=== PATIENT | female | born 1965 | race Caucasian/White ===

== ENCOUNTER 2018-03-17 12:30 | Emergency (ER) | payer OTHER, MEDICAID ==
[2018-03-17] MEDS: IBUPROFEN 600 MG TAB PO (14:23)
== END 2018-03-17 14:45 | disposition home or self-care (01) ==
LOC: FTE 12:30
DX: S40.011A Contusion of right shoulder, initial encounter (principal); W01.0XXA Fall on same level from slipping, tripping and stumbling without subsequent striking against object, initial encounter; Y92.9 Unspecified place or not applicable
CPT/HCPCS: 29105; 73030-RT; 99283-25

== ENCOUNTER 2018-08-08 14:23 | Emergency (ER) | payer OTHER ==
[2018-08-08] MEDS: IBUPROFEN 600 MG TAB PO (14:47)
== END 2018-08-08 14:58 | disposition home or self-care (01) ==
LOC: FTE 14:23
DX: R07.89 Other chest pain (principal); R40.2412 Glasgow coma scale score 13-15, at arrival to emergency department
CPT/HCPCS: 99282; Z7502